=== PATIENT | male | born 1960 | race Caucasian/White ===

== ENCOUNTER → 2017-09-14 | Emergency (ER) | payer OTHER ==
[~2017-09-14] VITALS: Ht 170.2 cm; Wt 77.1 kg
[~2017-09-14] MED LIST: AMOX1TAB12 PO; ATIVAN0.5 MG PO; HYZAAR 50-12.1 UDTAB; XANAX1 MG PO
== END | disposition home or self-care (01) ==
LOC: ER 08:19
DX: R00.0 Tachycardia, unspecified (principal); F06.4 Anxiety disorder due to known physiological condition

== ENCOUNTER → 2017-09-14 | Emergency (ER) | payer OTHER ==
[~2017-09-14] VITALS: Ht 170.2 cm; Wt 77.1 kg
== END | disposition home or self-care (01) ==
LOC: ER 13:41
DX: R00.2 Palpitations (principal); G47.00 Insomnia, unspecified

== ENCOUNTER 2018-02-17 21:19 | Emergency (ER) | payer OTHER ==
[~2018-02-17] VITALS: Ht 170.2 cm; Wt 72.6 kg
[2018-02-17] MEDS ORDERED: COZAAR100 MG PO (22:31)
[2018-02-18] MEDS ORDERED: LOSARTAN POTAS100 MG PO (02:11)
== END 2018-02-18 02:51 | disposition home or self-care (01) ==
LOC: ER 21:19
DX: R51 Headache (principal); I10 Essential (primary) hypertension